=== PATIENT | female | born 1990 | race Caucasian/White ===

== ENCOUNTER 2017-06-30 14:18 | Emergency (ER) | payer BC, MEDICAID ==
[2017-06-30 14:31] VITALS: PULSE 100; TEMP 98.8; O2SAT 98
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
[2017-06-30] MEDS ORDERED: IBUPROFEN 800 MG TAB PO ONE (14:54)
[2017-06-30 15:58] VITALS: BP 150/76; RESP 20
== END 2017-06-30 15:57 | disposition home or self-care (01) ==
LOC: CED 14:18
DX: S06.0X0A Concussion without loss of consciousness, initial encounter (principal); W01.198A Fall on same level from slipping, tripping and stumbling with subsequent striking against other object, initial encounter
CPT/HCPCS: 70450-PO

== ENCOUNTER 2018-04-30 15:15 | Emergency (ER) | payer OTHER, MEDICAID ==
[2018-04-30 15:50] VITALS: BP 121/89
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
== END 2018-04-30 16:20 | disposition home or self-care (01) ==
LOC: CED 15:15
DX: S20.219A Contusion of unspecified front wall of thorax, initial encounter (principal); T74.11XA Adult physical abuse, confirmed, initial encounter; Y04.8XXA Assault by other bodily force, initial encounter; Y07.01 Husband, perpetrator of maltreatment and neglect; Y92.9 Unspecified place or not applicable; Y93.9 Activity, unspecified; Y99.9 Unspecified external cause status

== ENCOUNTER 2018-08-03 07:41 | Emergency (ER) | payer OTHER, MEDICAID ==
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
[2018-08-03] MEDS ORDERED: ONDANSETRON 4 MG/2 ML VIAL IVP ONE ×2 (08:09→10:05)
[2018-08-03] MEDS ORDERED: NS 1,000 ML IV ONE ×2 (08:09)
[2018-08-03] MEDS ORDERED: LORazepam 2 MG/ML INJ IVP ONE (08:09)
[2018-08-03 09:52] VITALS: BP 100/64
== END 2018-08-03 10:25 | disposition home or self-care (01) ==
LOC: CED 07:41
DX: R11.2 Nausea with vomiting, unspecified (principal); R10.33 Periumbilical pain; E86.9 Volume depletion, unspecified
CPT/HCPCS: 80048-ER; 96361-ER; 96374-ER; 96375-ER; 96376-ER; 99284-ER; J2060; J2405